=== PATIENT | male | born 1965 | race Two or more races ===

== ENCOUNTER 2022-05-19 04:22 | Day surgery (SDC) | payer OTHER ==
[2022-05-18 09:20] VITALS: BMI 31.0
[2022-05-19 12:04] VITALS: TEMP 98
[2022-05-19 12:38] VITALS: BP 110/74; PULSE 50; RESP 15
== END 2022-05-19 12:52 | disposition home or self-care (01) ==
LOC: JASU-ENDO 04:22
PROVIDERS: ATTEND Internal Medicine Gastroenterology
PROC: 0DBL8ZX Excision of Transverse Colon, Via Natural or Artificial Opening Endoscopic, Diagnostic (ICD-10-PCS; 2022-05-19)
PROC: 0DBN8ZX Excision of Sigmoid Colon, Via Natural or Artificial Opening Endoscopic, Diagnostic (ICD-10-PCS; 2022-05-19)
PROC: 0DBM8ZX Excision of Descending Colon, Via Natural or Artificial Opening Endoscopic, Diagnostic (ICD-10-PCS; principal; 2022-05-19 10:15)
DX: Z12.11 Encounter for screening for malignant neoplasm of colon (principal); D12.0 Benign neoplasm of cecum; D12.3 Benign neoplasm of transverse colon; D12.4 Benign neoplasm of descending colon; D12.5 Benign neoplasm of sigmoid colon; D12.7 Benign neoplasm of rectosigmoid junction; K59.89 Other specified functional intestinal disorders; K64.8 Other hemorrhoids
CPT/HCPCS: 88305-TC